=== PATIENT | male | born 1995 | race Hispanic/Latino ===

== ENCOUNTER 2019-01-02 17:41 | Emergency (ER) | payer OTHER ==
[2019-01-02] MEDS ORDERED: LIDOCAINE 1% MPF 5 ML VIAL ONE (18:22)
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
[2019-01-02 19:32] VITALS: TEMP 98.2; O2SAT 100
[2019-01-02 19:34] VITALS: BP 127/75
== END 2019-01-02 19:22 | disposition home or self-care (01) ==
LOC: ER 17:41
PROC: 0JQ10ZZ Repair Face Subcutaneous Tissue and Fascia, Open Approach (ICD-10-PCS; principal; 2019-01-02)
DX: S01.511A Laceration without foreign body of lip, initial encounter (principal); Y04.2XXA Assault by strike against or bumped into by another person, initial encounter; Y93.89 Activity, other specified; Y92.149 Unspecified place in prison as the place of occurrence of the external cause
CPT/HCPCS: 99283